=== PATIENT | female | born 1965 | race American Indian/Alaskan Native ===

== ENCOUNTER 2021-02-05 00:13 | Emergency (ER) | payer OTHER ==
[~2021-02-05] VITALS: Ht 157.5 cm; Wt 79.7 kg
--- OUTSIDE RECORDS SUMMARY | 2021-02-05 00:16 | XMS ---
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 Praveen has no Care Guidelines for this patient. Terese VISIT COUNT (12 MO.) 1 LENARD Hua TOTAL 1 NOTE: Visits indicate total known visits. ED/C VISIT TRACKING (12 MO.) 02/05/2021 00:14 LENARD Weeks OR TYPE: Emergency COMPLAINT: - KNEE PAIN INPATIENT VISIT TRACKING (12 MO.) No inpatient visits to display in this time frame [email or web address]
[2021-02-05] MEDS ORDERED: DOXYCYCLINE HY100 MG PO (00:30)
[2021-02-05] MEDS ORDERED: ROSUVASTATIN CAL5 MG PO (00:30)
[2021-02-05] MEDS ORDERED: HYDROCODON-ACE1 EA10 PO (01:15)
[2021-02-05] MEDS ORDERED: DICLOFENAC SODI75 MG PO (01:15)
[2021-02-05] MEDS ORDERED: CRUTCH1 EACH MISC (01:16)
== END 2021-02-05 01:38 | disposition home or self-care (01) ==
LOC: ED 00:13
DX: S83.411A Sprain of medial collateral ligament of right knee, initial encounter (principal); S83.412A Sprain of medial collateral ligament of left knee, initial encounter; V00.211A Fall from ice-skates, initial encounter; E78.5 Hyperlipidemia, unspecified; Z88.0 Allergy status to penicillin; Z79.899 Other long term (current) drug therapy
CPT/HCPCS: 73560; 99283-25

== ENCOUNTER 2021-08-04 08:51 | Day surgery (SDC) | payer OTHER ==
[~2021-08-04] VITALS: Ht 157.5 cm; Wt 77.0 kg
[~2021-08-04 08:51] MED LIST: CRUTCH1 EACH MISC; DICLOFENAC SODI75 MG PO; DOXYCYCLINE HY100 MG PO; HYDROCODON-ACE1 EA10 PO; ROSUVASTATIN CAL5 MG PO
[2021-08-04] MEDS ORDERED: OMEPRAZOLE20 MG PO (09:32)
[2021-08-04] MEDS ORDERED: VITAMIN C500 M1 PO (09:33)
[2021-08-04] MEDS ORDERED: VITAMIN D350 MC3 PO (09:33)
[2021-08-04] MEDS ORDERED: VITAMIN B COMP1 EAC1 PO (09:33)
--- NOTE | 2021-08-04 12:23 | NUR ---
08/04/21 1223 Zuleika Caceres 1217- PT ARRIVES TO PACU EASILY AROUSABLE TO VOICE. PT REPORTS NO PAIN OR NAUSEA. PT FALLS INSTANTLY BACK TO SLEEP WHEN NOT BEING TALKED TO. RESP EVEN AND UNLABORED. OXYGEN SAT HIGH 90'S TO 100% ON 2L VIA CO2 NC.
--- NOTE | 2021-08-04 18:26 | OR ---
[facility] [address], [place] [address] Signed DATE OF OPERATION: 08/04/2021 SURGEON: Mike Phan MD PREOPERATIVE DIAGNOSES: 1. Persistent epigastric pain while on PPI medication. 2. Possible erosive change of enamel of teeth related to reflux. POSTOPERATIVE DIAGNOSES: 1. Poor flap valve consistent with hiatal hernia. 2. Mild gastritis. PROCEDURE: Esophagogastroduodenoscopy with biopsy. ANESTHESIA: Intravenous sedation fentanyl 100 mcg, Versed 4 mg. INDICATION: This 56-year-old woman is well known to me from the past. She is a patient of Dr. Seth. I last performed upper endoscopy on her 21 years ago in 2000. She is having complaints of "reflux" by which she means epigastric pain. She was noted by her dentist to have the erosive changes of the enamel of her teeth suggestive of reflux as well. She is on Prilosec 20 mg p.o. daily. She does not have dysphagia and has no family history of esophageal cancer. She is admitted at this time to undergo upper endoscopy to better characterize the problem, understand the risks of bleeding, infection, and perforation. FINDINGS: Vocal cords were normal, though the posterior commissure was somewhat thickened, suggestive of high level reflux. The esophagus itself was surprisingly normal with no obvious evidence of inflammation at all. She had no Hernandez's epithelium. In the stomach, there was mild diffuse inflammation but not much, edematous changes were dominant. The pylorus was normal. The duodenum was normal. Retroflexed view confirmed a poor flap valve with hiatal hernia. It was relatively small. CLOtest was negative 15 minutes post procedure. DESCRIPTION OF PROCEDURE: The patient was brought to the endoscopy suite, given topical lidocaine hypopharyngeal anesthesia and placed in lateral decubitus position. She was given intravenous sedation Electronically Signed By: MIKE PHAN MD 08/04/21 1826 PATIENT NAME: CHIQUITA GAMINO OPERATIVE REPORT DATE OF : 63 REPORT #: [id number] PHYSICIAN: MIKE PHAN MD PCP: STEPHANIE SETH MD REPORT IS CONFIDENTIAL AND NOT TO BE RELEASED WITHOUT AUTHORIZATION [facility] [address], [place] [address] Signed to the point of slurred speech and nystagmus with full cardiopulmonary monitoring. A bite block was placed. An Olympus video upper endoscope was passed in the hypopharynx. The vocal cords appeared normal. The posterior commissure had a bit of thickening suggestive though not diagnostic of reflux issues. The scope was advanced to the esophagus, throughout its length it appeared normal including the distal portion with no evidence of Hernandez's epithelium, neoplasm, stricture or other abnormality. The scope was passed to the stomach, which was insufflated with air. Rugal folds appeared normal. Pylorus was normal. Scope was passed through into the duodenum. Second and third portions were normal. Biopsies were taken of the second and bulbar portions. The scope was withdrawn and biopsies taken of the antrum for both EMMANUELLE and pathologic testing. Retroflexed view showed edematous stomach mucosa more proximally and a poor flap valve. With various maneuvers, the scope could be withdrawn in the J position, intubating the esophagus confirmatory of small hiatal hernia and poor flap valve. The scope was straightened, withdrawn and biopsies taken of the distal esophagus that looked entirely normal. Narrow band imaging was performed as well. The scope was withdrawn to the mid esophagus which was biopsied also. Further withdrawal of scope allowed for visualization of the vocal cord once again including the posterior commissure with its somewhat thickened area. She was taken to recovery room at conclusion of procedure, having suffered no complication. CONCLUSION DIAGNOSIS: Clinical gastroesophageal reflux with poor flap valve. Additionally, mild diffuse gastritis. PLAN: We will initiate Carafate in addition to her ongoing Prilosec 20 mg daily. I will review more closely her dental enamel in a different setting. She may have reflux, but it would be peculiar not to cause at least some amount of esophagitis; the esophagus itself looked quite good. MD CAMMY Chester/MELODYL /[id number] cc: Dr. Seth Electronically Signed By: MIKE PHAN MD 08/04/21 1826 PATIENT NAME: CHIQUITA GAMINO OPERATIVE REPORT DATE OF : 63 REPORT #: [id number] PHYSICIAN: MIKE PHAN MD PCP: STEPHANIE SETH MD REPORT IS CONFIDENTIAL AND NOT TO BE RELEASED WITHOUT AUTHORIZATION [address] [address] Signed Copies: ~ Electronically Signed By: MIKE PHAN MD 08/04/21 1826 PATIENT NAME: GAMINOCHIQUITA OPERATIVE REPORT DATE OF : 63 REPORT #: [id number] PHYSICIAN: MIKE PHAN MD PCP: STEPHANIE SETH MD REPORT IS CONFIDENTIAL AND NOT TO BE RELEASED WITHOUT AUTHORIZATION
== END 2021-08-04 13:10 | disposition home or self-care (01) ==
LOC: OPS 08:51 → DS 08:54 → OPS 11:45
PROVIDERS: ATTEND Surgery
PROC: 0DB78ZX Excision of Stomach, Pylorus, Via Natural or Artificial Opening Endoscopic, Diagnostic (ICD-10-PCS; 2021-08-04)
PROC: 0DB28ZX Excision of Middle Esophagus, Via Natural or Artificial Opening Endoscopic, Diagnostic (ICD-10-PCS; 2021-08-04)
PROC: 0DB38ZX Excision of Lower Esophagus, Via Natural or Artificial Opening Endoscopic, Diagnostic (ICD-10-PCS; principal; 2021-08-04 11:45)
DX: K29.50 Unspecified chronic gastritis without bleeding (principal); K21.9 Gastro-esophageal reflux disease without esophagitis; Z86.16 Personal history of COVID-19; Z90.49 Acquired absence of other specified parts of digestive tract; Z88.8 Allergy status to other drugs, medicaments and biological substances; Z88.0 Allergy status to penicillin
CPT/HCPCS: 99153; G0500; J2250; J3010; J7121